=== PATIENT | female | born 1980 | race Two or more races ===

== ENCOUNTER 2018-07-22 08:00 | Outpatient (CLI) | payer OTHER ==
[~2018-07-22 08:00] MED LIST: GILTUSS TR TAB1 EACH PO; OSEL75CA PO; TUSSI PRES-B L120 M1 PO; ZITHROMAX500 MG PO; ZYRTEC10 MG PO
== END 2018-07-22 08:08 | disposition home or self-care (01) ==
LOC: LAB 08:00
DX: I10 Essential (primary) hypertension (principal); J30.89 Other allergic rhinitis; L20.89 Other atopic dermatitis

== ENCOUNTER → 2019-03-11 14:34 | Outpatient (CLI) | payer OTHER | END | disposition home or self-care (01) | LOC: LAB 14:34 → CERTIFICAD 14:34 | DX: Z11.1 Encounter for screening for respiratory tuberculosis (principal) ==

== ENCOUNTER 2019-10-06 19:21 | Outpatient (CLI) | payer OTHER | END 2019-10-06 19:33 | disposition home or self-care (01) | LOC: LAB 19:21 | PROVIDERS: ATTEND Physical Medicine & Rehabilitation | DX: Z20.828 Contact with and (suspected) exposure to other viral communicable diseases (principal); Z11.59 Encounter for screening for other viral diseases ==

== ENCOUNTER → 2019-11-23 07:00 | Outpatient (CLI) | payer OTHER | END | disposition home or self-care (01) | LOC: PPH VACUNA 07:00 | DX: Z23 Encounter for immunization (principal) ==

== ENCOUNTER 2020-01-05 15:49 | Outpatient (CLI) | payer OTHER | END 2020-01-05 15:50 | disposition home or self-care (01) | LOC: LAB 15:49 | DX: U07.1 COVID-19 (principal); Z11.59 Encounter for screening for other viral diseases ==

== ENCOUNTER 2020-02-16 17:34 | Outpatient (CLI) | payer OTHER | END 2020-02-16 18:00 | disposition home or self-care (01) | LOC: LAB 17:34 | PROVIDERS: ATTEND Physical Medicine & Rehabilitation | DX: Z20.828 Contact with and (suspected) exposure to other viral communicable diseases (principal); Z11.59 Encounter for screening for other viral diseases ==

== ENCOUNTER 2020-03-13 17:17 | Outpatient (CLI) | payer OTHER | END 2020-03-13 18:00 | disposition home or self-care (01) | LOC: CERTIFICAD 17:17 → LAB 17:17 | PROVIDERS: ATTEND General Practice | DX: R05 Cough (principal); Z11.3 Encounter for screening for infections with a predominantly sexual mode of transmission ==

== ENCOUNTER → 2020-05-05 10:10 | Outpatient (CLI) | payer OTHER | END | disposition home or self-care (01) | LOC: LAB 10:10 | PROVIDERS: ATTEND Surgery | DX: K60.1 Chronic anal fissure (principal) ==

== ENCOUNTER 2020-05-15 05:55 | Day surgery (SDC) | payer OTHER | END 2020-05-15 11:15 | disposition home or self-care (01) | LOC: AMB-ENDOS 05:55 | PROVIDERS: ATTEND Surgery | DX: K62.89 Other specified diseases of anus and rectum (principal); Z20.822 Contact with and (suspected) exposure to COVID-19; Z12.11 Encounter for screening for malignant neoplasm of colon ==

== ENCOUNTER → 2020-06-30 07:36 | Outpatient (CLI) | payer OTHER ==
[~2020-06-30 07:36] MED LIST changes: +KETO10TA2 PO; +NEURONTIN300 MG PO; +PERCOCET 5-3251 EACH PO
== END | disposition home or self-care (01) ==
LOC: LAB 07:36
PROVIDERS: ATTEND Surgery
DX: K60.1 Chronic anal fissure (principal)

== ENCOUNTER 2020-07-10 05:55 | Day surgery (SDC) | payer OTHER ==
[~2020-07-10 05:55] MED LIST changes: -KETO10TA2 PO; -NEURONTIN300 MG PO; -PERCOCET 5-3251 EACH PO
[2020-07-10] MEDS ORDERED: PERCOCET 5-3251 EACH PO (08:55)
[2020-07-10] MEDS ORDERED: KETO10TA2 PO (08:56)
[2020-07-10] MEDS ORDERED: NEURONTIN300 MG PO (08:56)
== END 2020-07-10 13:20 | disposition home or self-care (01) ==
LOC: CIR.AMB 05:55
PROVIDERS: ATTEND Surgery
DX: K60.1 Chronic anal fissure (principal); K64.4 Residual hemorrhoidal skin tags; Z20.822 Contact with and (suspected) exposure to COVID-19

== ENCOUNTER 2020-12-01 08:00 | Outpatient (CLI) | payer OTHER ==
[~2020-12-01 08:00] MED LIST changes: +KETO10TA2 PO; +NEURONTIN300 MG PO; +PERCOCET 5-3251 EACH PO
== END 2020-12-01 08:15 | disposition home or self-care (01) ==
LOC: PPH VACUNA 08:00
PROVIDERS: ATTEND Emergency Medicine Pediatric Emergency Medicine
DX: Z23 Encounter for immunization (principal)

== ENCOUNTER 2020-12-15 10:45 | Outpatient (CLI) | payer OTHER | END 2020-12-15 11:00 | disposition home or self-care (01) | LOC: PPH VACUNA 10:45 | PROVIDERS: ATTEND Emergency Medicine Pediatric Emergency Medicine | DX: Z23 Encounter for immunization (principal) ==

== ENCOUNTER 2021-10-24 15:53 | Outpatient (CLI) | payer OTHER | END 2021-10-24 15:54 | disposition home or self-care (01) | LOC: LAB 15:53 | DX: Z01.419 Encounter for gynecological examination (general) (routine) without abnormal findings (principal) ==

== ENCOUNTER 2021-10-25 11:54 | Outpatient (CLI) | payer OTHER | END 2021-10-25 13:08 | disposition home or self-care (01) | LOC: MAMO-SONO 11:54 | DX: Z12.31 Encounter for screening mammogram for malignant neoplasm of breast (principal) ==

== ENCOUNTER 2021-11-14 08:00 | Outpatient (CLI) | payer OTHER | END 2021-11-14 08:05 | disposition home or self-care (01) | LOC: PPH VACUNA 08:00 | PROVIDERS: ATTEND Emergency Medicine Pediatric Emergency Medicine | DX: Z23 Encounter for immunization (principal) ==

== ENCOUNTER 2022-10-31 | Outpatient (CLI) | payer OTHER | END 2022-10-31 00:15 | disposition home or self-care (01) | LOC: PPH VACUNA | PROVIDERS: ATTEND Emergency Medicine Pediatric Emergency Medicine | DX: Z23 Encounter for immunization (principal) ==

== ENCOUNTER 2022-12-25 14:09 | Outpatient (CLI) | payer OTHER | END 2022-12-25 14:19 | disposition home or self-care (01) | LOC: MAMO-SONO 14:09 | PROVIDERS: ATTEND Surgery | DX: N60.11 Diffuse cystic mastopathy of right breast (principal); N60.12 Diffuse cystic mastopathy of left breast; Z12.31 Encounter for screening mammogram for malignant neoplasm of breast ==

== ENCOUNTER 2023-01-10 12:47 | Outpatient (CLI) | payer OTHER | END 2023-01-10 12:50 | disposition home or self-care (01) | LOC: RAD 12:47 | PROVIDERS: ATTEND Physical Medicine & Rehabilitation | DX: M54.2 Cervicalgia (principal) ==

== ENCOUNTER → 2023-02-19 07:59 | Outpatient (CLI) | payer OTHER ==
[2023-02-19 08:29] LABS: HEMATOCRIT 36.7 % (36.0-45.00); MEAN CORPUSCULAR HEMOGLOBIN 32.7 pg (27.00-32.0); MEAN CORPUSCULAR HGB CONC 35.5 g/dl (32.0-36.0); PLATELET COUNT 329 K/uL (150-450); RED BLOOD COUNT 3.98 M/uL (4.00-6.00); RED CELL DISTRIBUTION WIDTH 12.9 % (11.5-14.5)
[2023-02-19 08:32] LABS: URINE APPEARANCE Clear; URINE BILIRRUBIN Negative (NEGATIVE); URINE BLOOD Negative; URINE COLOR Yellow; URINE GLUCOSE Negative (NEGATIVE); URINE LEUKOCYTE Negative; URINE NITRATE Negative; URINE PROTEIN Negative (NEGATIVE); URINE UROBILINOGEN 0.2 E.U./dl
[2023-02-19 08:36] LABS: URINE BACTERIA 473.6 uL (0.0-1933); URINE EPITHELIAL CELLS 3.7 uL (0.0-38.8)
[2023-02-19 09:05] LABS: ALBUMIN 3.7 gm/dL (3.4-5.0); BILIRUBIN TOTAL 0.43 mg/dL (0.3-1.2); CALCIUM 8.4 mg/dL (8.5-10.1); CHOL HDL RATIO 3.5 (0-5.0); CREATININE SERUM 0.72 mg/dL (0.55-1.02); GFR 88.41; GLOBULINA 3.4 G/DL (2.4-3.5); POTASSIUM 4.33 mEq/L (3.5-5.1); TOTAL PROTEIN 7.1 gm/dL (6.4-8.2); TSH 3.04 uIU/mL (0.358-3.74)
== END | disposition home or self-care (01) ==
LOC: LAB 02-13 09:17
DX: Z13.1 Encounter for screening for diabetes mellitus (principal); Z13.220 Encounter for screening for lipoid disorders; Z13.29 Encounter for screening for other suspected endocrine disorder; E55.9 Vitamin D deficiency, unspecified

== ENCOUNTER 2023-02-20 11:59 | Outpatient (CLI) | payer OTHER | END 2023-02-20 12:01 | disposition home or self-care (01) | LOC: LAB 11:59 | PROVIDERS: ATTEND Pediatrics Neonatal-Perinatal Medicine | DX: T78.40XA Allergy, unspecified, initial encounter (principal) ==

== ENCOUNTER 2023-11-10 16:23 | Outpatient (CLI) | payer OTHER | END 2023-11-10 16:26 | disposition home or self-care (01) | LOC: RAD 16:23 | PROVIDERS: ATTEND Internal Medicine | DX: R06.09 Other forms of dyspnea (principal) ==

== ENCOUNTER 2025-01-03 08:53 | Outpatient (CLI) | payer OTHER | END 2025-01-03 08:58 | disposition home or self-care (01) | LOC: MAMO-SONO 08:53 | PROVIDERS: ATTEND Internal Medicine | DX: N64.4 Mastodynia (principal); Z12.31 Encounter for screening mammogram for malignant neoplasm of breast; Z12.39 Encounter for other screening for malignant neoplasm of breast ==

== ENCOUNTER 2025-02-07 07:38 | Outpatient (CLI) | payer OTHER ==
[2025-02-07 08:55] LABS: BASO % 0.9 % (0.1-1.2); EOS # 0.51 (0.04-0.54); EOS % 6.0 % (0.7-7.0); LYMPH # 2.16 (1.18-3.74); LYMPH % 25.3 % (19.3-53.1); MEAN PLATELET VOLUME 10.20 fl (9.4-12.4); MONO # 0.52 (0.24-0.82); MONO % 6.1 % (4.7-12.5); NEUT # 5.24 (1.56-6.13); NEUT % 61.5 % (34.0-71.1); RED CELL DISTRIBUTION WIDTH 14.0 % (11.6-14.4)
[2025-02-07 08:57] LABS: URINE APPEARANCE Clear; URINE BILIRRUBIN Negative (NEGATIVE); URINE BLOOD Negative; URINE COLOR Yellow; URINE GLUCOSE Negative (NEGATIVE); URINE KETONE Negative (NEGATIVE); URINE LEUKOCYTE Negative; URINE NITRATE Negative; URINE PROTEIN Negative (NEGATIVE); URINE UROBILINOGEN 0.2 E.U./dl
[2025-02-07 09:02] LABS: URINE BACTERIA 38.8 uL (0.0-1933); URINE RBC 2.2 uL (0.0-20.8)
[2025-02-07 09:12] LABS: URINE CAST 0.00 uL (0.0-1.40); URINE EPITHELIAL CELLS 0.9 uL (0.0-38.8); URINE WBC 0.9 uL (0.0-23.2)
[2025-02-07 09:25] LABS: ERYTHROCYTE SEDIMENTATION RATE 11 mm/hr (0-20)
[2025-02-07 10:05] LABS: ALT/SGPT 25.0 U/L (12-78); AST/SGOT 13.0 U/L (15-37); BILIRUBIN TOTAL 0.37 mg/dL (0.3-1.2); BUN CREA RATIO 28.0 (7.0-25.0); CHOL HDL RATIO 2.9 (0-5.0); CREATININE SERUM 0.61 mg/dL (0.55-1.02); FREE TRIODOTIRONINE 2.59 pg/ml (2.18-3.98); GFR 106.06; GLOBULINA 3.4 G/DL (2.4-3.5); GLUCOSE FASTING 82.0 mg/dL (65-100); HDL 57.0 mg/dl (40-60); LDL 89.0 mg/dl (0-130); OSMOLALITY SERUM 280.0 MOSM/KG (275-295); T4 TOTAL 7.66 UG/DL (4.8-13.9); TSH 3.66 uIU/mL (0.358-3.74); VLDL 21.0 (0-39)
[2025-02-07 13:31] LABS: ob NEGATIVE (NEGATIVE)
== END 2025-02-07 07:43 | disposition home or self-care (01) ==
LOC: LAB 07:38
PROVIDERS: ATTEND Internal Medicine
DX: G43.909 Migraine, unspecified, not intractable, without status migrainosus (principal); M54.12 Radiculopathy, cervical region; E55.9 Vitamin D deficiency, unspecified; Z13.1 Encounter for screening for diabetes mellitus; Z13.220 Encounter for screening for lipoid disorders; Z12.11 Encounter for screening for malignant neoplasm of colon; Z13.29 Encounter for screening for other suspected endocrine disorder; Z00.00 Encounter for general adult medical examination without abnormal findings